=== PATIENT | female | born 1985 | race Caucasian/White ===

== ENCOUNTER 2021-04-06 08:24 | Emergency (ER) | payer OTHER, SELFPAY ==
[2021-04-06 08:33] VITALS: BP 131/78; PULSE 81; RESP 18; TEMP 37.1; O2SAT 100
--- NOTE | 2021-04-06 08:41 | ED.CHESTPAIN ---
HPI - Chest Pain General Chief Complaint: Chest Pain Stated Complaint: pain in chest and shoulder History of Present Illness HPI narrative: This is a 35 year old female that preset to urgent care with left-sided chest pain. Patient states the chest pain radiates to her upper for left arm patient states that has been going on for 3 to 4 days intermittently patient denies any shortness of breath nausea vomiting. Patient also states that when she lifts her left arm her chest hurts as well. Patient states she has occassional shortness of breath and she does not have a primary care provider Pain location: left chest Related Data Home Medications Medication Instructions Recorded Confirmed No Home Medications 04/06/21 04/06/21 Allergies Allergy/AdvReac Type Severity Reaction Status Date / Time amoxicillin Allergy Unknown Verified 04/06/21 08:46 azithromycin Allergy Unknown Verified 04/06/21 08:46 cefaclor [From Ceclor] Allergy Unknown Verified 04/06/21 08:46 erythromycin base Allergy Unknown Verified 04/06/21 08:46 Review of Systems Review of Systems: Chest pain All systems reviewed & are unremarkable except as noted in HPI and below PMFSH Comments At time as signature, I have reviewed and agree with nursing past medical, social, surgical and family history. Please see nursing chart for further information. There is no relevant family history pertinent to the presenting complaint. Exam Narrative: GENERAL:Well-appearing, well-nourished, and in no acute distress. HEAD:Normocephalic EYES: PERRLA and EOMI. ENT: Nares clear, no rhinorrhea or epistaxis. Mucous membranes moist. CHEST: Clear to auscultation. No respiratory distress. Chest wall painful to palpitation and midsternal pectoral area HEART: Regular rate and rhythm. Normal peripheral pulses. ABDOMEN: Soft, nontender, nondistended, normal active bowel sounds. EXTREMITIES: Normal range of motion. No edema. SKIN: Warm, dry, no rash. NEURO: No focal deficits. Alert and oriented x3. Course Vital Signs Vital signs: Vital Signs Temperature 98.8 F 04/06/21 08:33 Pulse Rate 81 04/06/21 08:33 Respiratory Rate 18 04/06/21 08:33 Blood Pressure 131/78 04/06/21 08:33 Pulse Oximetry 100 04/06/21 08:33 Temperature 98.8 F 11/10/21 08:33 Pulse Rate 81 04/06/21 08:33 Respiratory Rate 18 04/06/21 08:33 Blood Pressure 131/78 04/06/21 08:33 Pulse Oximetry 100 04/06/21 08:33 MDM - Chest Pain Differential Diagnosis Differential diagnosis: Likely stable angina, unstable angina pectoris, atypical chest pain, st elevation myocardial infarction, costochondritis and chest pain Discharge Plan Discharge Clinical Impression: Atypical chest pain Patient Disposition: Acute Care Hospital Condition: Stable Instructions: Chest Pain (ED) Additional Instructions: Symptoms the [facility] signed AMA papers would not take ambulance report given to Faith HERNANDEZ for Dr. chris Prescriptions: No Action No Home Medications RF: 0 Follow-up/Referrals: PHYSICIAN,REAL ESTATE ACQUISITION ANALYST [Primary Care Provider] - Time of Disposition: 08:59
--- NOTE | 2021-04-06 08:46 | ECG_ITS ---
Measurements Intervals [place] Rate: 83 P: 72 IN: 148 QRS: 56 QRSD: 81 T: 55 QT: 344 QTc: 406 Interpretive Statements SINUS RHYTHM BASELINE ARTIFACT- II, III NORMAL ECG Electronically Signed On 04-06-2021 12:16:37 GENERAL AGENT by Moises Issa D.O.
== END 2021-04-06 09:00 | disposition short-term general hospital (02) ==
PROVIDERS: Emergency Provider Nurse Practitioner Family
DX: R07.89 Other chest pain (principal)
CPT/HCPCS: 93005; 99213; G0463